=== PATIENT | male | born 1975 | race Caucasian/White ===

== ENCOUNTER 2019-01-18 09:30 | Emergency (ER) | payer SELFPAY ==
[2019-01-18] VITALS (23 sets, daily range): BP systolic 84–126; BP diastolic 37–87; PULSE 44–67; RESP 10–35; TEMP 36.3; O2SAT 98–100
--- NOTE | 2019-01-18 09:42 | ED.GENADUL_ITS ---
Discharge Plan Disposition Patient Disposition: AGAINST MEDICAL ADVICE Condition: Stable Discharge Details Chief Complaint: Laceration Clinical Impression: Symptomatic bradycardia, Vasovagal syncope, Foot laceration Primary Care Provider: None,None ED Provider: Mela Cantrell Home Meds and New Rx's Prescriptions: New amoxicillin-pot clavulanate [Augmentin] 875-125 mg tablet 1 tab PO BID 7 Days Qty: 14 RF: 0 Discharge Instructions Instructions: Laceration (ED), Bradycardia (ED) Additional Instructions: Keep the wound clean and dry. Take the antibiotics until finished. Return to the emergency department in 7 days for suture removal. You will receive a call from care management regarding a follow-up appointment with your primary care doctor for recheck of your heart rate. Return immediately to the emergency department if you develop any worsening or new concerning symptoms such as dizziness, chest pain or shortness of breath Discharge Data Discharge Date/Time-TO BE ENTERED AT DEPARTURE: 01/18/19 12:25 Discharge Physician: Mela Cantrell Medical Decision Making 43-year-old male with no known past medical history presents with laceration to left foot after a chainsaw cut through his boot down to his skin just prior to arrival. Patient drove himself to the ED and ambulated back to the ED room declining a wheelchair. Patient complained of some dizziness upon getting onto the stretcher, blood pressure 84/37, heart rate 45, and appeared to be consistent with vasovagal. He denies any chest pain or shortness of breath. Symptoms improved with laying supine, patient placed on nasal cannula oxygen. Heart rate improved to 50s. Systolic BP 99. Left foot laceration appears through dermis without obvious bony deformity or foreign body. Neurovascular intact. Will irrigate, give a dose of ibuprofen, Boostrix, and sent for left foot x-ray. As the laceration went to the boot, will cover with antibiotics. As this was not a puncture wound to the sole of the foot, do not see an indication for treatment for Pseudomonas. 1010 --patient returned from radiology and blood pressure 91/57. Heart rate in the 40s to 50s, with occasional dips down into the 30s and patient complained of some dizziness during this. He denies any chest pain, shortness of breath, and was slightly drowsy but able to answer questions. Patient placed on a monitor, pacer pads placed, IV, labs, portable chest x-ray. EKG noted a rate of 44, sinus, no acute ST-T wave ischemic findings, CT 154, QTc 378, QRS 88. 1020 --He admitted to some improvement in dizziness, heart rate mid 40s. Patient denies any history of being an athlete, drug use, alcohol use, states he has been eating and drinking and sleeping normally. Patient does state that he was recently incarcerated for 4 years up until 1 year ago. 1040 --heart rate has remained stable in the 40s to 50s. Patient denies any complaints of chest pain, shortness of breath, dizziness. Discussed with patient that I am concerned about his symptomatic bradycardia and would recommend admission to the hospital for further evaluation. Patient is refusing admission at this time. He is asking that his foot laceration be sutured and he wants to go home. The risks of and disability due to a serious etiology were explained and patient understands and would still like to leave. He does demonstrate capacity to make decisions. Foot x-ray reviewed and negative. CXR negative. 1200 --8 sutures placed, wound irrigated and covered with bacitracin. There is no evidence of tendon injury. Wound irregular and some edges debrided. Pt informed that some parts of skin may not heal intact due to irregular wound. Motor and sensory grossly intact. Patient again is refusing admission. His heart rate has remained in the 40s to 50s and he has no further episodes of dizziness, chest pain or shortness of breath. It is possible his initial bradycardia into the 30s may have been due to vasovagal syncope, but due to persistent tachycardia, unsure of etiology. BP improved, 118/81. Will place patient on care management list to arrange for follow-up appointment with her primary care doctor for reevaluation of his symptomatic bradycardia and for referral to orthopedics if any concern for further orthopedic injury of foot. He is instructed to return to the emergency department in 7 days for suture removal. Dose of Augmentin here and prescription given for home. Instructed to return here immediately with any worsening or new concerning symptoms. Medical Records Medical records reviewed: Yes I reviewed the patient's medical records. Imaging Data Radiologic Study: Radiologist's impression: PORTABLE AP UPRIGHT CHEST: The lungs are well expanded and free of infiltrate. There is no pleural effusion. The cardiovascular structures appear intact. hand blocker leads overlie the chest wall. SUMMARY: No evidence of acute cardiopulmonary disease. LEFT FOOT: There is no evidence of a fracture or dislocation. No soft tissue foreign body is demonstrated. A small soft tissue radiolucency is noted adjacent to the first metatarsal head consistent with a soft tissue injury. Lab Data Lab results reviewed: Yes I reviewed the patient's lab results. Laboratory Tests Range/Units 01/18/19 01/18/19 01/18/19 10:30 10:33 10:33 WBC (4.4-10.8) k/cumm 5.48 RBC (4.50-6.00) m/cumm 4.46 L Hgb (13.5-17.5) g/dL 14.4 Hct (40.0-50.0) % 41.9 MCV (80-95) fL 93.9 MCH (27.0-33.0) pg 32.3 MCHC (32.0-36.0) g/dL 34.4 RDW (11.8-14.1) % 13.2 Plt Count (130-400) x1000/uL 239 MPV (8.0-11.0) fL 10.3 Immature Gran % 0.2 Neutrophils % 60.2 Lymphocytes % 29.9 Monocytes % 7.8 Eosinophils % 1.5 Basophils % 0.4 Absolute Neutrophils (1.2-6.7) k/cumm 3.30 Absolute Lymphocytes (1.2-3.4) k/cumm 1.64 Absolute Monocytes (0.11-0.7) k/cumm 0.43 Absolute Eosinophils (0.0-0.7) k/cumm 0.08 Absolute Basophils (0.0-0.2) k/cumm 0.02 Sodium (136-145) mmol/L 142 Potassium (3.5-5.1) mmol/L 4.2 Chloride (98-107) mmol/L 107 Carbon Dioxide (21.0-32.0) mmol/L 26.8 Anion Gap (3-11) mmol/L 8.2 BUN (7-18) mg/dL 19 H Creatinine (0.70-1.30) mg/dL 1.00 Estimated GFR/1.73 m2 (mL/min/1.73m2) >= 60.00 Glucose (70-100) mg/dL 111 H Calcium (8.5-10.1) mg/dL 8.8 Magnesium (1.8-2.4) mg/dL 2.0 Total Bilirubin (0.2-1.0) mg/dL 0.3 AST (15-37) U/L 16 ALT (12-78) U/L 26 Alkaline Phosphatase (46-116) U/L 72 Troponin I (0.00-0.06) ng/mL < 0.02 Total Protein (6.4-8.2) g/dL 6.7 Albumin (3.4-5.0) g/dL 3.5 Urine Color (Yellow) Urine Clarity Urine pH (5-8) Ur Specific [place] (1.005-1.025) Urine Protein (Negative) mg/dL Urine Ketones (Negative) mg/dL Urine Blood (Negative) Urine Nitrite (Negative) Urine Bilirubin (Negative) Urine Urobilinogen (Up TO 0.2) EU/dL Ur Leukocyte Esterase (Negative) Urine RBC (0-2) Urine WBC (0-5) HPF Ur Epithelial Cells (Negative) HPF Urine Crystals (Negative) HPF Urine Bacteria (Negative) HPF Urine Casts (Negative) LPF Urine Mucus (Negative) Ur Culture Indicated? Urine Glucose (Negative) mg/dL Urine Opiates Screen (Negative) Urine Methadone Screen (Negative) Ur Barbiturates Screen (Negative) Ur Tricyclics Screen (Negative) Ur Amphetamines Screen (Negative) U Benzodiazepines Scrn (Negative) Urine Cocaine Screen (Negative) Ur THC Screen (Negative) Ethyl Alcohol (<3) mg/dL < 3.0 Lyme Disease Antibody Negative B. burgdorferi (PCR) Lyme DNA Comment B.garinii/afzelii PCR B. mayonii (PCR) Range/Units 01/18/19 01/18/19 01/18/19 10:57 10:57 11:19 WBC (4.4-10.8) k/cumm RBC (4.50-6.00) m/cumm Hgb (13.5-17.5) g/dL Hct (40.0-50.0) % MCV (80-95) fL MCH (27.0-33.0) pg MCHC (32.0-36.0) g/dL RDW (11.8-14.1) % Plt Count (130-400) x1000/uL MPV (8.0-11.0) fL Immature Gran % Neutrophils % Lymphocytes % Monocytes % Eosinophils % Basophils % Absolute Neutrophils (1.2-6.7) k/cumm Absolute Lymphocytes (1.2-3.4) k/cumm Absolute Monocytes (0.11-0.7) k/cumm Absolute Eosinophils (0.0-0.7) k/cumm Absolute Basophils (0.0-0.2) k/cumm Sodium (136-145) mmol/L Potassium (3.5-5.1) mmol/L Chloride (98-107) mmol/L Carbon Dioxide (21.0-32.0) mmol/L Anion Gap (3-11) mmol/L BUN (7-18) mg/dL Creatinine (0.70-1.30) mg/dL Estimated GFR/1.73 m2 (mL/min/1.73m2) Glucose (70-100) mg/dL Calcium (8.5-10.1) mg/dL Magnesium (1.8-2.4) mg/dL Total Bilirubin (0.2-1.0) mg/dL AST (15-37) U/L ALT (12-78) U/L Alkaline Phosphatase (46-116) U/L Troponin I (0.00-0.06) ng/mL Total Protein (6.4-8.2) g/dL Albumin (3.4-5.0) g/dL Urine Color (Yellow) Yellow Urine Clarity Clear Urine pH (5-8) 6.5 Ur Specific [place] (1.005-1.025) 1.025 Urine Protein (Negative) mg/dL Trace H Urine Ketones (Negative) mg/dL Trace H Urine Blood (Negative) Negative Urine Nitrite (Negative) Negative Urine Bilirubin (Negative) Negative Urine Urobilinogen (Up TO 0.2) EU/dL 0.2 Ur Leukocyte Esterase (Negative) Negative Urine RBC (0-2) 0-2 Urine WBC (0-5) HPF 0-2 Ur Epithelial Cells (Negative) HPF Rare Urine Crystals (Negative) HPF Negative Urine Bacteria (Negative) HPF Negative Urine Casts (Negative) LPF Negative Urine Mucus (Negative) Moderate Ur Culture Indicated? No Urine Glucose (Negative) mg/dL Negative Urine Opiates Screen (Negative) Negative Urine Methadone Screen (Negative) Negative Ur Barbiturates Screen (Negative) Negative Ur Tricyclics Screen (Negative) Negative Ur Amphetamines Screen (Negative) Negative U Benzodiazepines Scrn (Negative) Negative Urine Cocaine Screen (Negative) Negative Ur THC Screen (Negative) Negative Ethyl Alcohol (<3) mg/dL Lyme Disease Antibody B. burgdorferi (PCR) Cancelled Lyme DNA Comment Cancelled B.garinii/afzelii PCR Cancelled B. mayonii (PCR) Cancelled ECG Data Attestation: I personally reviewed and interpreted this ECG (s) as follows: Interpretation: Rate of 44, sinus, no acute ST-T wave ischemic changes, CT 154, QTc 378, QRS 88. HPI General Mode of arrival: ambulatory . Date/Time Provider Initiated Documentation: 01/18/19 09:39 . Limitations to Documentation: no limitations . Information obtained by: patient . HPI Narrative: Patient is a 43-year-old male presents with left foot chainsaw injury prior to arrival. Patient states he was at home when the chainsaw slipped and cut through his boot on his left foot down to his skin. Patient drove himself to the ER and ambulated back to the room. Patient is unsure of his tetanus status. He denies any other injuries. Related Data Home Medications Medication Instructions Recorded Confirmed amoxicillin-pot clavulanate 1 tab PO BID 7 Days #14 tab 01/18/19 [Augmentin] Previous Rx's Medication Instructions Recorded amoxicillin-pot clavulanate 1 tab PO BID 7 Days #14 tab 01/18/19 [Augmentin] Allergies Allergy/AdvReac Type Severity Reaction Status Date / Time No Known Allergies Allergy Unverified 01/18/19 09:36 General Stated Complaint: Laceration SATRID: 3 Review of Systems Review of Systems All systems reviewed & are unremarkable except as noted in HPI and below FORMERLY [facility] Medical History No significant past medical history (Acute) Surgical History No significant past surgical history (Acute) Social History Smoking/Tobacco Use Status: Never Alcohol Intake: never Drug use: Never Substance use type: does not use Do you feel safe at home: Yes Do you feel safe in your relationship?: Yes Exam Const General: cooperative, healthy appearing and no acute distress HENMT Head: normal to inspection Mouth: oral mucosae normal Eyes General: appearance normal, both eyes and all related structures Neck Neck: normal visual inspection Resp Effort & Inspection: normal respiratory effort and able to speak in complete sentences Cardio Rate: regular rate Skin General skin exam: no rashes or lesions noted Neuro General: alert, awake and oriented x3 Motor: muscle tone normal throughout Extrem Ankle/foot/toe images: 1. 2cm straight laceration with 1.5cm x 1 mm skin flap hanging in center. No obvious foreign bodies noted. No active bleeding. No bony deformity Other: Left ankle exam normal. Left DP/PT pulses intact. Remainder of left foot exam within normal limits. Psych Appearance: grossly normal Affect: normal affect Course Vital Signs Temperature 97.3 F L 01/18/19 09:33 Pulse 45 L 01/18/19 09:33 Respiratory Rate 20 01/18/19 09:33 Blood Pressure 84/37 L 01/18/19 09:33 Pulse Oximetry 100 01/18/19 09:33 Temperature 97.3 F L 01/18/19 09:33 Temperature Source Temporal Artery Scan 01/18/19 09:33 Pulse 45 L 01/18/19 09:33 Respiratory Rate 20 01/18/19 09:33 Respiratory Effort Non-Labored 01/18/19 09:33 Blood Pressure 84/37 L 01/18/19 09:33 Pulse Oximetry 100 01/18/19 09:33 Pain Level 8 01/18/19 09:33 Procedures Laceration Laceration 1: Site: lower extremity (foot) Side (If applicable): left Size (cm): 2 Description: linear and irregular Local Anesthetic: Lidocaine 1% and with Epi Amount of anesthesia used (mL): 7 Pre-repair: wound explored, irrigated extensively and deep structures intact Skin layer closed with: nylon Size (cm): 5-0 Number of sutures: 8 Technique: simple, interrupted
[2019-01-18 10:39] LABS: Abs Immature Grans 0.01 k/cumm (0.0-0.09); Absolute Basophil Count 0.02 k/cumm (0.0-0.2); Absolute Eosinophil Count 0.08 k/cumm (0.0-0.7); Absolute Lymphocyte Count 1.64 k/cumm (1.2-3.4); Absolute Monocyte Count 0.43 k/cumm (0.11-0.7); Basophils % 0.4; Eosinophils % 1.5; HCT 41.9 % (40.0-50.0); HGB 14.4 g/dL (13.5-17.5); Immature Grans % 0.2; Lymphocytes % 29.9; Mean Corp. HGB Concentration 34.4 g/dL (32.0-36.0); Mean Corpuscular Hemoglobin 32.3 pg (27.0-33.0); Mean Corpuscular Volume 93.9 fL (80-95); Mean Platelet Volume 10.3 fL (8.0-11.0); Monocytes % 7.8; Neutrophils % 60.2; Platelet Count 239 x1000/uL (130-400); RBC 4.46 m/cumm (4.50-6.00); RBC Distribution Width 13.2 % (11.8-14.1); White Blood Cell Count 5.48 k/cumm (4.4-10.8)
--- NOTE | 2019-01-18 10:44 | DI.RAD_ITS ---
SYMPTOMS/DIAGNOSIS: BRADYCARDIA, ? ACUTE DISEASE PORTABLE AP UPRIGHT CHEST: The lungs are well expanded and free of infiltrate. There is no pleural effusion. The cardiovascular structures appear intact. monitor car operator leads overlie the chest wall. SUMMARY: No evidence of acute cardiopulmonary disease.
--- NOTE | 2019-01-18 10:46 | DI.RAD_ITS ---
SYMPTOM/DIAGNOSIS: LACERATION, ? FX OR FOREIGN BODY LEFT FOOT: There is no evidence of a fracture or dislocation. No soft tissue foreign body is demonstrated. A small soft tissue radiolucency is noted adjacent to the first metatarsal head consistent with a soft tissue injury.
[2019-01-18 10:59] LABS: ALT 26 U/L (12-78); AST 16 U/L (15-37); Albumin 3.5 g/dL (3.4-5.0); Alkaline Phosphatase 72 U/L (46-116); Anion Gap 8.2 mmol/L (3-11); BUN 19 mg/dL (7-18); Bilirubin, Total 0.3 mg/dL (0.2-1.0); CO2 26.8 mmol/L (21.0-32.0); Calcium 8.8 mg/dL (8.5-10.1); Chloride 107 mmol/L (98-107); Glucose 111 mg/dL (70-100); Potassium 4.2 mmol/L (3.5-5.1); Sodium 142 mmol/L (136-145); Total Protein 6.7 g/dL (6.4-8.2)
[2019-01-18 11:03] LABS: Troponin I < 0.02 ng/mL (0.00-0.06)
[2019-01-18 11:03] LABS: Bilirubin Negative (Negative); Blood Negative (Negative); Clarity Clear; Glucose Negative (Negative); Ketones Trace mg/dL (Negative); Leukocyte Esterase Negative (Negative); Nitrite Negative (Negative); Specific Gravity 1.025 (1.005-1.025); Urobilinogen 0.2 EU/dL (Up TO 0.2); pH 6.5 (5-8)
[2019-01-18] MEDS: Normal Saline 1,000 ML 1000 ML IV (11:05)
[2019-01-18 11:08] LABS: ETHANOL BLOOD < 3.0 mg/dL (<3)
[2019-01-18 11:14] LABS: Bacteria Negative HPF (Negative); C & S Indicated? No; Casts Negative LPF (Negative); Crystals Negative HPF (Negative); Epithelial Cells Rare HPF (Negative); Mucus Moderate (Negative); RBC 0-2 (0-2); WBC 0-2 HPF (0-5)
[2019-01-18 11:23] LABS: *AMPHETAMINES SCREEN URINE Negative (Negative); *BARBITURATES SCREEN URINE Negative (Negative); *BENZODIAZEPINES SCREEN URINE Negative (Negative); Cannabinoids THC Negative (Negative); Cocaine Screen,Urine Negative (Negative); METHADONE URINE SCREEN Negative (Negative); OPIATES URINE SCREEN Negative (Negative)
[2019-01-18 11:27] LABS: Tricyclic Antidepressants Negative (Negative)
[2019-01-18] MEDS: Amoxicillin 875/Clav. 125 TAB PO (12:38)
[2019-01-19 13:07] LABS: Lyme Ab w Rflx to Lyme Confirm Negative
== END 2019-01-18 12:25 | disposition left against medical advice (07) ==
PROVIDERS: Emergency Provider Physician Assistant
DX: R00.1 Bradycardia, unspecified (principal); R55 Syncope and collapse; S91.312A Laceration without foreign body, left foot, initial encounter; W29.3XXA Contact with powered garden and outdoor hand tools and machinery, initial encounter
CPT/HCPCS: 12001; 36415; 80053; 80307; 87476; 87798; 90471; 93005; 96360; 99285; 71045; 73630; 80320; 81003; 81015; 83735; 84484; 85025; 86618; 93010

== ENCOUNTER 2019-02-01 14:39 | Emergency (ER) | payer SELFPAY ==
[2019-02-01 14:52] VITALS: BP 123/76; PULSE 61; RESP 16; TEMP 36.4; O2SAT 96
--- NOTE | 2019-02-01 16:31 | NUR.NOTE ---
Nursing Note: Jose Daniel from [facility] transport came to bring patient to [facility]. Did not find patient in [facility] and Dr. Brian Tirado also looked and patient was not in the [facility] or the regular waiting room. Pt. srinivasa. Opal Dexter.
--- NOTE | 2019-02-01 21:50 | W.ED.GENAD ---
Discharge Plan Disposition Patient Disposition: AGAINST MEDICAL ADVICE Condition: Stable Discharge Details Chief Complaint: Recheck Clinical Impression: Encounter for removal of sutures, Great toe pain, Tingling in extremities Primary Care Provider: None,None ED Provider: Shawn Tirado Home Meds and New Rx's Prescriptions: No Action No Known Home Meds RF: 0 Medical Decision Making This is a 43-year-old male who presents for wound recheck. Roughly 14 days ago he injured a laceration to his metatarsal phalangeal joint on his left foot. 8 sutures were placed, he was started on antibiotics/Augmentin, which he has completed. He did leave AGAINST MEDICAL ADVICE on his last visit. Today physical exam demonstrates a well-healed laceration, no evidence of significant abnormality. No evidence of redness, warmth, or drainage. Over the patient does complain of pain, and also has decreased sensation on the distal aspect of his toe. Patient's 8 simple interrupted sutures were removed without any incident. Steri-Strips were placed over the wound for patient reassurance. Because of the patient's continued pain we did order an x-ray for further evaluation/reassessment of potential infection versus osseous abnormality. Unfortunately the patient eloped shortly after this without telling nursing staff or access. Unsure as to why the patient left. He did not receive his complete medical care, the x-ray that was requested, per my reassessment. On my initial assessment though, I did discuss with the patient importance of continued orthopedic follow-up and close PCP follow-up. He did understand this at that time. Patient has left AGAINST MEDICAL ADVICE, without completing his evaluation or assessment. Patient is of a appropriate age to make decisions. The patient is of sound mind, appears clinically sober, and has capacity to make decisions by my clinical exam. We have provided options for treatment and discussed the risks and benefits of these options and refusing these options, including and disability specific to the patient's pathology. We have tried to involve the patient's support group that was present here or by contacting them on the phone but we are unable to make any contact. The patient chooses to leave before evaluation and treatment is complete AGAINST MEDICAL ADVICE. HPI General Date/Time Provider Initiated Documentation: 02/01/19 15:00. HPI Narrative: This is a 43-year-old male who presents today for evaluation of suture removals. 14 days ago he was seen and assessed for laceration to his left foot over the first great toe. He was placed on antibiotics, and admission was recommended at that time after 8 sutures were placed. Unfortunately he left AGAINST MEDICAL ADVICE. He took the antibiotics as directed. He comes back today for reassessment. He denies any fever, chills, redness or drainage. He does still admit to mild pain in his first toe, as well as numbness and tingling in his great toe. Pain is made worse with ambulation. Improved by nothing. He denies any other complaints at this time. He denies any other modifying factors. Related Data Home Medications Medication Instructions Recorded Confirmed Unknown [No Known Home Meds] 02/01/19 02/01/19 Allergies Allergy/AdvReac Type Severity Reaction Status Date / Time No Known Allergies Allergy Unverified 02/01/19 15:01 General Stated Complaint: Recheck ASTRID: 4 Review of Systems Review of Systems All systems reviewed & are unremarkable except as noted in HPI and below PFSH Social History Smoking/Tobacco Use Status: Never Alcohol Intake: never Drug use: Never Substance use type: does not use Do you feel safe at home: Yes Do you feel safe in your relationship?: Yes Exam Narrative Exam Narrative: 1.Const: Well-nourished, Well-developed, appearing stated age 2.Eyes: PERRL, no conjunctival injection, and symmetrical lids. 3.ENT: Atraumatic external nose and ears. Moist MM. Neck: Symmetric, trachea midline, No thyromegaly. 4.CVS: +S1/S2, No murmurs or gallops. Peripheral pulses 2+ and equal in all extremities. Brisk capillary refill in all extremities. 5.RESP: Unlabored respiratory effort. Clear to auscultation bilaterally. No wheezes rales or rhonchi 6.GI: Soft, Nontender/Nondistended, No hepatosplenomegaly. No guarding or rebound. 7.MSK: Normocephalic, Extremities w/o deformity No cyanosis or clubbing, Normal movement of all extremities. Skin over the metatarsal phalangeal joint of the left foot demonstrates excellent wound edge reapproximation, but healing, no evidence of dehiscence or drainage. No evidence of redness, warmth, or signs of cellulitis. Notable decrease in sensation over the distal tip of the toe, however sensation is still intact throughout, but two-point discrimination is notably reduced over the great toe. 8.Skin: Please see musculoskeletal description 9.Neuro: delivery department supervisor II-XII grossly intact. Sensation grossly intact, no focal neurologic deficits. 10.Psych: (AAO) x3. Appropriate mood and affect Course Vital Signs Temperature 36.4 C L 02/01/19 14:52 Pulse 61 02/01/19 14:52 Respiratory Rate 16 02/01/19 14:52 Blood Pressure 123/76 02/01/19 14:52 Pulse Oximetry 96 02/01/19 14:52 Temperature 36.4 C L 02/01/19 14:52 Temperature Source Skin 02/01/19 14:52 Pulse 61 02/01/19 14:52 Respiratory Rate 16 02/01/19 14:52 Respiratory Effort Non-Labored 02/01/19 14:52 Blood Pressure 123/76 02/01/19 14:52 Blood Pressure Position Sitting 02/01/19 14:52 Pulse Oximetry 96 02/01/19 14:52 Oxygen Delivery Method Room Air 02/01/19 14:52 Oxygen Flow Rate 0 02/01/19 14:52 Pain Level 3 02/01/19 14:52
== END 2019-02-01 16:14 | disposition left against medical advice (07) ==
PROVIDERS: Emergency Provider Student in an Organized Health Care Education/Training Program
DX: S91.312D Laceration without foreign body, left foot, subsequent encounter (principal); W45.8XXD Other foreign body or object entering through skin, subsequent encounter; Z48.02 Encounter for removal of sutures; Z53.29 Procedure and treatment not carried out because of patient's decision for other reasons

== ENCOUNTER 2019-06-26 22:08 | Emergency (ER) | payer SELFPAY ==
[2019-06-26 22:13] VITALS: BP 119/85; PULSE 60; RESP 18; TEMP 36.9; O2SAT 98
--- NOTE | 2019-06-26 22:21 | ED.GENADUL_ITS ---
Discharge Plan Disposition Patient Disposition: HOME Condition: Good Discharge Details Chief Complaint: Trauma Clinical Impression: Chest wall contusion Primary Care Provider: None,None ED Provider: Audrey Cornell Home Meds and New Rx's Prescriptions: No Action No Known Home Meds RF: 0 Discharge Instructions Instructions: Contusion in Adults (ED) Additional Instructions: Encourage hydration. Tylenol and/or ibuprofen as needed for discomfort. You may continue with topical patches such as Salonpas or Lidoderm patches for discomfort. Please use incentive spirometer as instructed by nursing staff. If you develop fever/chills, increased pain, difficulty breathing or other new/worsening symptoms please seek care urgently once again. cold rolling coordinator will contact you regarding primary care follow-up. We will contact you regarding your tick and Lyme panel if you have any positive results. These typically take 5-7 business days. Discharge Data Discharge Date/Time-TO BE ENTERED AT DEPARTURE: 06/26/19 23:46 Medical Decision Making Patient is a 43-year-old male presents today with chief complaint of left-sided chest wall pain. He reports that last night the ladder he was standing on collapsed and he fell down with it landing on the bull driver that was in the left side of his jacket pocket. Since that time, he has had left-sided chest wall pain. Denies any shortness of breath but does report that he has some increased discomfort with deep inspiration or cough. Does not note this pain with normal breathing. Denies abdominal pain. No change in bowel or bladder habits denies any radiating pain. Denies other injury the time the incident. Did Not strike head, denies LOC. Patient states that he has had multiple fx ribs historically and this pain is not as severe as it has been in the past with previous injuries. Pain worse with movement and palpation over area. On exam, patient is resting comfortably. Vital signs within normal limits. Good range of motion of his spine. No midline tenderness. He has pain primarily over the left mid axillary ribs around the area of #6 and 7. No palpable abnormalities noted. No skin changes to suggest acute trauma. Lungs are clear in all valdez with good inspiratory effort. No pain with abdominal palpation, no peritoneal findings. Normal pelvic exam. Moving all extremities well with no evidence of trauma. Plan for chest x-ray. He is not taking anything for his discomfort, will give him Tylenol and ibuprofen as well as Lido derm patch. Patient is requesting a full body scan because he does not seek medical care on a regular basis. We discussed that htis is not typically how people are screened for routine medical maintanence. He does report he is concerned that he may have Lyme. No constitutional symptoms. Has had multiple tick exposures. Will obtain tick and Lyme panel given his exposure. Given the area of discomfort, EKG was obtained showing patient to be in sinus bradycardia with a rate of 49, this is consistent with comparison. EKG was reviewed by Dr. Navarro and compared to EKG, obtained in December of this year and no acute findings are noted, no acute ischemic changes. CXR reviewed by radiologist: FINDINGS: Bones/joints: No acute fracture. Lungs: Clear lungs. Pleural space: No pleural effusion. No pneumothorax. Heart/Mediastinum: Unremarkable cardiomediastinal silhouette. Soft tissues: Normal. IMPRESSION: No acute fracture. FINDINGS: Lungs: Clear lungs. Pleural space: No pleural effusion. No pneumothorax. Heart/Mediastinum: Unremarkable cardiomediastinal silhouette. Bones/joints: No acute fracture. IMPRESSION: Normal chest x-ray. No acute fracture identified. Discussed the findings with the patient. At this point, there is no evidence of pneumothorax or displaced fracture. Patient does not appear to be in any discomfort is moving about well. Is feeling improved after medication inter vention. Nursing staff instructed the patient on how to use incentive spirometer. He was given strict return precautions. Patient does not have a primary care and I have asked our home health care coordinator to help follow-up with this patient so he may be seen in the next 2 weeks for reevaluation. Will continue with Tylenol and/or Ibuprofen as needed for discomfort. We discussed topical options to help with discomfort as well. We will contact him with any positive results from his concussion panel. All his questions and concerns were addressed and he is in agreement with this plan. HPI General Mode of arrival: ambulatory . Date/Time Provider Initiated Documentation: 06/26/19 22:20 . Limitations to Documentation: no limitations . Information obtained by: patient and RN notes reviewed . History of Present Illness 43 year old M presents to the emergency department with the chief complaint of left sided rib pain, described as severe and similar to prior episodes (states he has had multiple fx ribs historically and that htis is less severe than previous), Quality is described as aching, and is localized to the chest (left chest wall). Patient reports no radiation. Patient started experiencing this day(s) (1) and it has been constant. Immobilization improves symptom(s), Movement worsens symptoms . Patient notes no other symptoms.. Patient did receive the following treatments prior to arrival, none Related Data Home Medications Medication Instructions Recorded Confirmed Unknown [No Known Home Meds] 02/01/19 06/26/19 Allergies Allergy/AdvReac Type Severity Reaction Status Date / Time No Known Allergies Allergy Unverified 06/26/19 22:21 General Stated Complaint: Trauma ASTRID: 2 Review of Systems Constitutional Constitutional: Reports as per HPI, Denies chills, Denies fatigue, Denies fever(s), Denies headache(s) and Denies weakness Eyes Eyes: Reports as per HPI, Denies blurry vision, Denies change in vision and Denies loss of vision ENT Ears, Nose, Mouth, and Throat: Denies abnormal hearing and Denies headache(s) Cardiovascular Cardiovascular: Reports as per HPI, Reports chest pain (left sided chest wall pain), Denies dyspnea and Denies dyspnea on exertion Respiratory Respiratory: Reports as per HPI, Denies cough, Denies hemoptysis, Denies excessive phlegm production, Denies pain on inspiration, Reports pain with cough, Denies dyspnea, Denies dyspnea on exertion, Denies stridor and Denies wheezing Gastrointestinal Gastrointestinal: Reports as per HPI, Denies abdominal pain, Denies nausea and Denies vomiting Genitourinary Genitourinary: Reports as per HPI and Denies urinary incontinence Musculoskeletal Musculoskeletal: Reports as per HPI Integumentary/Breasts Skin/Breast: Reports as per HPI and Denies rash Neurologic Neurologic: Reports as per HPI, Denies abnormal hearing, Denies abnormal movements, Denies abnormal speech, Denies headache(s), Denies lack of coordination, Denies focal weakness, Denies loss of vision, Denies seizure-like activity, Denies paresthesias and Denies weakness Endocrine Endocrine: Denies fatigue Allergic/Immunologic Allergic/Immunologic: Denies wheezing [facility] Medical History No significant past medical history (Acute) Surgical History No significant past surgical history (Acute) Social History Smoking/Tobacco Use Status: Never Alcohol Intake: never Drug use: Never Substance use type: does not use Do you feel safe at home: Yes Do you feel safe in your relationship?: Yes Exam Const General: cooperative, healthy appearing, comfortable, no acute distress, well developed and well groomed Nutritional Appearance: average body habitus and well nourished Orientation: alert, awake and oriented x3 HENMT Head: normal to inspection, no palpable skull fracture, normocephalic and atraumatic Ears: hearing grossly normal bilaterally, external ears normal and TM's normal bilaterally General nose exam: external nose normal Mouth: oral mucosae normal, lip normal and tongue normal Throat: posterior oropharynx normal Eyes General: appearance normal, both eyes and all related structures Visual Valdez: normal visual valdez by confrontation Alignment and Position: alignment normal Periorbital: periorbital findings normal Eyelids: eyelids normal Conjunctivae: conjunctivae normal Pupils: PERRL EOM: EOM intact bilaterally Neck Neck: normal visual inspection, full ROM, no lymphadenopathy, no meningeal signs, trachea midline and supple Chest Chest: normal inspection of the chest, normal palpation of entire chest wall, no crepitus, localized rib tenderness with anteroposterior compression (left lateral near area of 6-8 ribs), tenderness and No rash Resp Effort & Inspection: normal respiratory effort, able to speak in complete sentences and no respiratory distress Auscultation: clear to auscultation bilaterally, no rales, no rhonchi and no wheezes Cardio Rate: regular rate Rhythm: regular rhythm Heart Sounds: S1 normal and S2 normal GI Inspection: normal to inspection, no abdominal wall ecchymosis, no edema and non-distended Palpation: soft, no hepatosplenomegaly, not firm, no guarding, no pulsatile masses, not rigid and nontender Auscultation: normal bowel sounds Back/Spine/Pelvis Back: no CVA tenderness Cervical Spine: normal cervical lordosis and cervical ROM normal Thoracic/Lumbar Spine: thoracic and lumbar spine normal to inspection, thoraco- lumbar ROM normal, No thoraco-lumbar ROM limited, No thoraco-lumbar spasm and No thoracic spinal tenderness Pelvis: no pain with anterior-posterior compression and no pain with lateral compression Skin General skin exam: no rashes or lesions noted Lesions: no lesions Rashes: no rashes Trauma: no lacerations or abrasions Wounds: no wounds Neuro General: alert, awake, oriented x3, gait normal, tone normal and moves all extremities Cranial Nerves: CN's II-XI intact bilaterally Cognition: normal cognition Speech: speech normal Gait: normal gait Motor: muscle tone normal throughout and strength 5/5 throughout Sensory Exam: no sensory deficits noted (no saddle paresthesias) Extrem General: normal to inspection, full ROM, normal capillary refill, no pedal edema and no calf tenderness Psych Appearance: grossly normal and well kempt Mental Status: mental status grossly normal Speech and Movement: speech and movement normal Course Vital Signs Vital signs: Vital Signs Temperature 36.9 C 06/26/19 22:13 Pulse 60 06/26/19 22:13 Respiratory Rate 18 06/26/19 22:13 Blood Pressure 119/85 06/26/19 22:13 Pulse Oximetry 98 06/26/19 22:13 Temperature 36.9 C 06/26/19 22:13 Temperature Source Skin 06/26/19 22:13 Pulse 60 06/26/19 22:13 Respiratory Rate 18 06/26/19 22:13 Blood Pressure 119/85 06/26/19 22:13 Blood Pressure Position Sitting 06/26/19 22:13 Pulse Oximetry 98 06/26/19 22:13 Oxygen Delivery Method Room Air 06/26/19 22:13 Oxygen Flow Rate 0 06/26/19 22:13 Pain Level 10 06/26/19 22:13
--- NOTE | 2019-06-26 22:40 | DI.RAD_ITS ---
EXAM: XR RIBS LT W PA LAT CHEST INDICATION: fall. COMPARISON: XR PORTABLE CHEST AP from 01/18/2019 TECHNIQUE: 2D digital imaging was performed. FINDINGS: Cardiac and mediastinal contours have a normal appearance. The lungs are clear. No pneumothorax or rib fracture is seen. IMPRESSION: Negative chest and left ribs.
[2019-06-26] MEDS: Acetaminophen 500 MG TAB 1000 MG PO (22:47)
[2019-06-26] MEDS: Ibuprofen 600 MG TAB PO (22:48)
[2019-06-26] MEDS: Lidocaine 5% Patch 1 PATCH TP (22:48)
--- NOTE | 2019-06-26 23:26 | DI.VRAD_ITS ---
PROCEDURE INFORMATION: Exam: XR Left Ribs Exam date and time: 06/26/2019 10:42 PM Age: 43 years old Clinical history: Injury or trauma; Initial encounter; Blunt trauma (contusions or hematomas); Rib area, left side; Injury date: 06/26/19; Injury details: Fall with L rib pain TECHNIQUE: Imaging protocol: XR Left ribs. Views: 2 views. COMPARISON: CR XR PORTABLE CHEST AP 01/18/2019 10:43 AM FINDINGS: Bones/joints: No acute fracture. Lungs: Clear lungs. Pleural space: No pleural effusion. No pneumothorax. Heart/Mediastinum: Unremarkable cardiomediastinal silhouette. Soft tissues: Normal. IMPRESSION: No acute fracture. PROCEDURE INFORMATION: Exam: XR Chest, 2 Views Exam date and time: 06/26/2019 10:42 PM Age: 43 years old Clinical history: Injury or trauma; Initial encounter; Blunt trauma (contusions or hematomas); Rib area, left side; Injury date: 06/26/19; Injury details: Fall with L rib pain TECHNIQUE: Imaging protocol: XR of the chest Views: 2 views. COMPARISON: CR XR PORTABLE CHEST AP 01/18/2019 10:43 AM FINDINGS: Lungs: Clear lungs. Pleural space: No pleural effusion. No pneumothorax. Heart/Mediastinum: Unremarkable cardiomediastinal silhouette. Bones/joints: No acute fracture. IMPRESSION: Normal chest x-ray. No acute fracture identified. Dictated and Authenticated by: Jin Winkler MD. Ordering:JR Ventura MD
[2019-06-26 23:46] VITALS: RESP 18; O2SAT 98
[2019-06-26 23:48] VITALS: BP 122/66; PULSE 61; RESP 18; TEMP 36.7; O2SAT 99
--- NOTE | 2019-06-27 08:49 | NUR.NOTE ---
Nursing Note: Follow to establish care given to Care Management. Opal Dexter.
[2019-06-28 11:07] LABS: Lyme Ab w Rflx to Lyme Confirm Negative (Negative)
[2019-06-29 20:53] LABS: Anaplasma phagocytophilum Negative (Negative); B. miyamotoi PCR Negative (Negative); Babesia divergens/MO-1 Negative (Negative); Babesia duncani Negative (Negative); Babesia microti Negative (Negative); Ehrlichia chaffeensis Negative (Negative); Ehrlichia ewingii/canis Negative (Negative); Ehrlichia muris eauclairensis Negative (Negative)
== END 2019-06-26 23:46 | disposition home or self-care (01) ==
PROVIDERS: Emergency Provider Physician Assistant
DX: S20.212A Contusion of left front wall of thorax, initial encounter (principal); W11.XXXA Fall on and from ladder, initial encounter
CPT/HCPCS: 36415; 87798; 93005; 99285; 71046; 71100; 86618; 93010

== ENCOUNTER 2024-08-06 11:36 | Emergency (ER) | payer MEDICAID, SELFPAY ==
[2024-08-06 11:38] VITALS: BP 147/89; PULSE 57; RESP 15; TEMP 36.8; O2SAT 96
[2024-08-06 11:42] VITALS: BP 147/89; PULSE 57; RESP 15; TEMP 36.8; O2SAT 96
--- NOTE | 2024-08-06 11:59 | ED.GENADUL_ITS ---
Discharge Plan Disposition Patient Disposition: Home Condition: Stable Discharge Details Clinical Impression: Dental infection Primary Care Provider: None,None ED Provider: Shawn Connolly Home Meds and New Rx's Prescriptions: New amoxicillin-pot clavulanate 875-125 mg tablet 1 tab PO BID 10 Days Qty: 20 0RF No Action ibuprofen 800 mg tablet 800 mg PO Q8H Discharge Instructions Instructions: Amoxicillin and Clavulanate, Dental Pain ED Additional Instructions: You were seen in the emergency department for your dental pain, this is likely early infection I have sent a course of Augmentin to the pharmacy [place], we did provide you with Tylenol and a shot of Toradol here, please use therapeutic dosing of Tylenol (acetamenophen) & Advil (ibuprofen) in an alternating fashion as follows: Take 1000mg of Tylenol every 6 hours without missing doses- that is 4 times per day. Assisted in between the Tylenol dosings, take 400-600mg of Advil also on a 6 hour schedule, that is also 4 times per day. The daily maximum dosing of Tylenol is 4000mg, and the daily maximum dosing of Advil is 2400mg. This is safe to do for weeks. Please note that some common cold medications & prescription pain medications may contain acetamenophen and you need to read OTC drug labels and factor that in to maximum daily dosings. Please call any and all available dental offices to try and get on an emergency cancellation or emergency appointment list, the ER is do not have dental care. Please return to the emergency department for any severe increase in neck pain, inability to swallow, loss of voice, inability to open or close her jaw, excessive drooling. Referrals: [facility] [Provider Group] Discharge Data Discharge Date/Time-TO BE ENTERED AT DEPARTURE: 08/06/24 12:52 HPI General Date/Time Provider Initiated Documentation: 08/06/24 11:47 . HPI Narrative: 48 year-old male presents to ED today by POV/ambulating with a chief complaint of lower right dental pain, feels a filling has fallen out with onset over the past 2 months but worse over the past few days. Quality described as hot and cold sensitivity, searing sharp pain, no radiation to neck swelling, trismus, vocal changes, excessive drooling, fever, large gum swelling. Severity is described as 10/10. Palliating factors include OTC analgesics without relief. Provoking factors include chronic poor dentition. Events leading up to the incident/Associated Symptoms: Patient has tried calling a few dentists over the weekend but states he cannot get in, patient is surprised that there is no dentist on-call for the ER. Patient not anticoagulated. Related Data Home Medications ?Medication ?Instructions ?Recorded ?Confirmed amoxicillin 875 mg-potassium 1 tab PO BID 10 days #20 tabs 08/06/24 clavulanate 125 mg tablet ibuprofen 800 mg tablet 800 mg PO Q8H 08/06/24 08/06/24 Previous Rx's ?Medication ?Instructions ?Recorded amoxicillin 875 mg-potassium 1 tab PO BID 10 days #20 tabs 08/06/24 clavulanate 125 mg tablet Allergies Allergy/AdvReac Type Severity Reaction Status Date / Time No Known Allergies Allergy Unverified 08/06/24 11:43 General Stated Complaint: DentalOral ASTRID: 4 Review of Systems All systems reviewed & are unremarkable except as noted in HPI and below Exam Narrative Exam Narrative: GENERAL APPEARANCE: Well-nourished, non-toxic, awake and alert, atraumatic, no acute distress. SKIN: Warm, pink, dry, intact, without rashes/lesions/ulcerations. HEAD: Normocephalic, atraumatic, normal hair distribution for gender/age. EYES: Normal conjunctiva, no exudates on lids/lashes. ENT: Nares patent, no circumoral cyanosis, no facial swelling, diffuse dental caries without evidence of gingival abscess, no trismus, no vocal changes, managing secretions well, no neck swelling or tenderness NECK: Supple, trachea midline, painless cervical ROM. LUNGS/CHEST: Non-labored respirations, normal A/P diameter, symmetrical expansion, no chest wall deformity HEART (CV/PV): No peripheral edema, no JVD. ABDOMEN: Soft, non-distended, no guarding. MSK: Normal ROM, no swelling/deformity to bilateral UEs or LEs, moving all extremities without weakness, no cyanosis, spine midline without tenderness, normal curvature. NEURO: Mental Status AAOx4 - alert to person, place, time, events No facial droop, no forehead involvement. Motor: No focal weakness - strength 5/5 in bilateral UEs and LEs, proximal and distal, symmetric. Sensory: sensation intact to light touch globally. Gait normal: patient ambulated without ataxia into ED room. PSYCH: euthymic, cooperative, pleasant, appropriate speech Course Vital Signs Vital signs: Vital Signs Temperature 36.8 C 08/06/24 11:38 Pulse 57 L 08/06/24 11:38 Respiratory Rate 15 08/06/24 11:38 Blood Pressure 147/89 H 08/06/24 11:38 Pulse Oximetry 96 08/06/24 11:38 Temperature 36.8 C 08/06/24 11:42 Temperature Source Oral 08/06/24 11:42 Pulse 57 L 08/06/24 11:42 Respiratory Rate 15 08/06/24 11:42 Blood Pressure 147/89 H 08/06/24 11:42 Blood Pressure Position Sitting 08/06/24 11:42 Pulse Oximetry 96 08/06/24 11:42 Oxygen Delivery Method Room Air 08/06/24 11:42 Oxygen Flow Rate 0 08/06/24 11:42 Medical Decision Making This dictation utilizes [id number] dictation software and may contain unedited grammatical errors. 48 year-old male presents to ED today by POV/ambulating with a chief complaint of lower right dental pain, feels a filling has fallen out with onset over the past 2 months but worse over the past few days. Quality described as hot and cold sensitivity, searing sharp pain, no radiation to neck swelling, trismus, vocal changes, excessive drooling, fever, large gum swelling. Severity is described as 10/10. Palliating factors include OTC analgesics without relief. Provoking factors include chronic poor dentition. Events leading up to the incident/Associated Symptoms: Patient has tried calling a few dentists over the weekend but states he cannot get in, patient is surprised that there is no dentist on-call for the ER. Patients' medical history: Noncontributory. Family and social history: Noncontributory. Pertinent exam findings / vital signs include diffuse dental caries without evidence of gingival abscess, no trismus, no vocal changes, managing secretions well, no neck swelling or tenderness. Differential / pathologies of concern include dental infection, dental caries. Diagnostic studies of: -None. Interventions of: -Prescribed Augmentin, recommended therapeutic dosing APAP/NSAID. ED Course/Assessment/Plan: 48-year-old otherwise healthy male seeks dental care at the ER, I counseled him that is very uncommon for there to be dental care on-call in the ER and he does need to follow-up outpatient, he has no evidence of deep space infection I did prescribe him Augmentin and provide some Toradol for him. Recommend he follow- up with dentist, strict return criteria for neck swelling neck tenderness, difficulty swallowing, excessive drooling, vocal changes, decreased range of motion of jaw. Findings not consistent with deep space infection, dental abscess. Disposition of dental infection. Patient verbalized understanding of the plan and return to ED criteria and engaged in shared decision making. Medical Records Medical records reviewed: Yes I reviewed the patient's medical records. Quality:SDOH Health Related Social Needs: No Data to Display PFSH All Active Problems (Updated 08/06/24 @ 12:21 by JULIOCESAR Barton) Dental infection (Acute) Medical History (Updated 08/06/24 @ 12:21 by JULIOCESAR Barton) No significant past medical history Surgical History No significant past surgical history Social History Smoking/Tobacco Use Status: Never Smoking risk assessment performed?: Yes Alcohol Intake: never Drug use: Never Substance use type: does not use Do you feel safe at home: Yes Do you feel safe in your relationship?: Yes
[2024-08-06] MEDS: Ketorolac 30 MG/ML VIAL IM (12:30)
[2024-08-06] MEDS: Acetaminophen 500 MG TAB 1000 MG PO (12:30)
[2024-08-06 12:50] VITALS: BP 127/81; PULSE 56; RESP 18; O2SAT 97
== END 2024-08-06 12:52 | disposition home or self-care (01) ==
LOC: ER 12:27
PROVIDERS: Emergency Provider Physician Assistant
DX: K04.7 Periapical abscess without sinus (principal)
CPT/HCPCS: 96372; 99284; 99283; J1885